=== PATIENT | male | born 1990 | race Caucasian/White ===

== ENCOUNTER 2018-11-03 17:25 | Emergency (ER) | payer BC ==
[~2018-11-03] VITALS: Ht 177.8 cm; Wt 86.2 kg
[2018-11-03] MEDS ORDERED: KETOROLAC TROMETH 60MG/2ML VIAL IM ONE (19:00)
[2018-11-03 19:19] VITALS: BP 125/70
== END 2018-11-03 19:40 | disposition home or self-care (01) ==
LOC: EDBD 17:25 → ER 17:25
DX: S06.0X1A Concussion with loss of consciousness of 30 minutes or less, initial encounter (principal); S09.8XXA Other specified injuries of head, initial encounter; R42 Dizziness and giddiness; X58.XXXA Exposure to other specified factors, initial encounter; Y93.23 Activity, snow (alpine) (downhill) skiing, snowboarding, sledding, tobogganing and snow tubing; Y92.89 Other specified places as the place of occurrence of the external cause; Y99.8 Other external cause status
CPT/HCPCS: 70450; 72125; 93005; 96372; 99284; J1885; L0120